=== PATIENT | male | born 1985 ===

== ENCOUNTER 2022-05-11 09:56 | Emergency (ER) | payer MEDICARE ==
[2022-05-11 10:08] VITALS: BP 116/76
--- NOTE | 2022-05-11 11:45 | Emergency Department Report ---
ED Recheck HPI - General Chief Complaint: Medical Clearance Stated Complaint: NEED PSYCH MEDS Time Seen by Provider: 05/11/22 10:44 Source: patient, family, RN notes reviewed Mode of arrival: Ambulatory - History of Present Illness Initial Comments: This is a 36-year-old male [facility]. As per healthcare facility agents stated is in need for his medication refill as patient is new to their facility and has not established a primary care doctor at this time. Otherwise denies any symptoms or complaints. Patient and healthcare facility agent denies any chest pain, shortness of breath, fever, chills, nausea, vomiting, headache or stiff neck. Denies any psychiatric complaints or symptoms at this time. Denies any SI or HI. Returns Today for: request for prescription Symptoms Since Prior Visit: no new symptoms Associated Symptoms: none. denies: fever, chills, chest pain, shortness of breath, rash, malaise, nasuea, abdominal pain - Related Data Previous Rx's Medication Instructions Recorded Last Taken Type Iloperidone [Fanapt] 1 mg PO BID #60 tab 05/11/22 Unknown Rx Levothyroxine Sodium 25 mcg PO DAILY #30 cap 05/11/22 Unknown Rx [Levothyroxine] ED Review of Systems ROS: Stated complaint: NEED PSYCH MEDS Other details as noted in HPI Comment: All other systems reviewed and negative Constitutional: denies: chills, fever Eyes: denies: eye pain, eye discharge, vision change ENT: denies: ear pain, throat pain Respiratory: denies: cough, shortness of breath, wheezing Cardiovascular: denies: chest pain, palpitations Endocrine: no symptoms reported Gastrointestinal: denies: abdominal pain, nausea, diarrhea Genitourinary: denies: urgency, dysuria Musculoskeletal: denies: back pain, joint swelling, arthralgia Skin: denies: rash, lesions Neurological: denies: headache, weakness, paresthesias Psychiatric: denies: anxiety, depression, auditory hallucinations, visual hallucinations, homicidal thoughts, suicidal thoughts Hematological/Lymphatic: denies: easy bleeding, easy bruising ED Past Medical Hx - Past Medical History Additional medical history: hypothyroidism, autism, intermittent explosive disorder, unspecified mood disorder, sleep apnea, intellectual disability. - Medications Home Medications: Home Medications Medication Instructions Recorded Confirmed Last Taken Type Iloperidone [Fanapt] 1 mg PO BID #60 tab 05/11/22 Unknown Rx Levothyroxine Sodium 25 mcg PO DAILY #30 cap 05/11/22 Unknown Rx [Levothyroxine] ED Physical Exam - General Limitations: No Limitations General appearance: alert, in no apparent distress - Head Head exam: Present: atraumatic, normocephalic - Eye Eye exam: Present: normal appearance - Neck Neck exam: Present: normal inspection, full ROM. Absent: lymphadenopathy - Respiratory Respiratory exam: Absent: respiratory distress - Cardiovascular Cardiovascular Exam: Present: regular rate - Extremities Exam Extremities exam: Present: full ROM - Back Exam Back exam: Present: full ROM - Neurological Exam Neurological exam: Present: alert, oriented X3, normal gait - Psychiatric Psychiatric exam: Present: normal affect, normal mood - Skin Skin exam: Present: warm, dry, intact, normal color. Absent: rash ED Course Vital Signs 05/11/22 10:06 Temperature 98.9 F Pulse Rate 99 H Respiratory 14 Rate Blood Pressure 116/76 [Right] O2 Sat by Pulse 96 Oximetry - Reevaluation(s) Reevaluation #1: 05/11/22 11:45 Patient is speaking in full sentences with no signs of distress noted. ED Recheck MDM - Medical Decision Making 36-year-old male that presents with medication refill. Patient is stable and was examined by me. As per healthcare facility agent needs Fanapt 1 mg BID and levothyroxine 25 mcg. At time of discharge, the patient does not seem toxic or ill in appearance. No acute signs of distress noted. Patient agrees to discharge treatment plan of care. No further questions noted by the patient. Critical care attestation.: If time is entered above; I have spent that time in minutes in the direct care of this critically ill patient, excluding procedure time. ED Disposition Clinical Impression: Encounter for medication refill Disposition: HOME / SELF CARE / HOMELESS Is pt being admited?: No Does the pt Need Aspirin: No Condition: Stable Additional Instructions: Follow-up with a primary care doctor in 3-5 days or if symptoms worsen and continue return to emergency room as soon as possible. Prescriptions: Iloperidone [Fanapt] 1 mg PO BID #60 tab Levothyroxine Sodium [Levothyroxine] 25 mcg PO DAILY #30 cap Referrals: PRIMARY CARE, [Referring] - 3-5 Days PRIYA MALIK MD [Staff Physician] - 3-5 Days Time of Disposition: 11:49
== END 2022-05-11 12:00 | disposition home or self-care (01) ==
LOC: ED 09:56
DX: F84.0 Autistic disorder (principal); Z76.0 Encounter for issue of repeat prescription; E03.9 Hypothyroidism, unspecified; F63.81 Intermittent explosive disorder; F39 Unspecified mood [affective] disorder; G47.30 Sleep apnea, unspecified; F79 Unspecified intellectual disabilities
CPT/HCPCS: 99282

== ENCOUNTER 2022-05-22 02:08 | Emergency (ER) | payer MEDICARE ==
[2022-05-22 03:30] VITALS: BP 111/72
[2022-05-22 11:19] LABS: Hemoglobin 12.3 gm/dl (11.8-15.2); Mean Corpuscular HGB Conc 33 % (32-34); Mean Corpuscular Volume 91 fl (84-94); Platelet Count 189 K/mm3 (140-440); Red Blood Count 4.06 M/mm3 (3.65-5.03); Red Cell Distribution Width 14.1 % (13.2-15.2)
--- NOTE | 2022-05-22 11:32 | XRay Report ---
CHEST 2 VIEWS INDICATION: Chest pain. COMPARISON: none FINDINGS: Support devices: None. Heart: Within normal limits. Lungs/pleura: No acute air space or interstitial disease. No pneumothorax. Additional findings: Colonic interposition over the liver is noted. IMPRESSION: No acute findings. Signer Name: Devin Gibson Jr, MD Signed: 05/22/2022 11:28 AM Workstation Name: [id number]
[2022-05-22 11:49] LABS: Alanine Aminotransferase 7 units/L (7-56); Albumin 4.8 g/dL (3.9-5); BUN/Creatinine Ratio 21; Blood Urea Nitrogen 17 mg/dL (9-20); Calcium 10.1 mg/dL (8.4-10.2); Hemolysis Index 4
[2022-05-22 13:27] LABS: Anisocytosis 1+; Basophils % (Manual) 0 % (0.0-1.8); Platelet Estimate Consistent w Auto; Total Cells Counted 100
--- NOTE | 2022-05-22 16:47 | Event Note ---
ED Screening Note ED Screening Note: respiratory care specialist took pt from [facility] due to wait Charge nurse and nursing staff aware Dr Hernandez and Samuel aware of pt - and have not seen at the time of pt leaving Charge nurse aware and will discuss with MD At the time pt left he has been here 14 hours This initial assessment/diagnostic orders/clinical plan/treatment(s) is/are subject to change based on patients health status, clinical progression and re- assessment by fellow clinical providers in the ED. Further treatment and workup at subsequent clinical providers discretion. Patient/guardian urged not to elope from the ED as their condition may be serious if not clinically assessed and managed. Initial orders include:
--- NOTE | 2022-05-22 18:44 | Electrocardiograph Report ---
[facility] Test Date: 2022-05-22 Test Time: 03:09:59 Pat Name: MENG THOMSON Department: Room: Gender: M Medicine Assistant: KIT : 1985 Requested By: ED DOC Order Number: [id number] Reading MD: Mally Franklin Measurements Intervals [place] Rate: 84 P: 78 [place]: 160 QRS: 67 QRSD: 69 T: 49 QT: 381 QTc: 450 Interpretive Statements Sinus rhythm Normal ECG No previous ECG available for comparison Electronically Signed On 05-22-2022 18:43:54 EDT by Mally Franklin
== END 2022-05-22 17:00 | disposition left against medical advice (07) ==
LOC: ED 02:08
DX: G47.00 Insomnia, unspecified (principal); Z53.21 Procedure and treatment not carried out due to patient leaving prior to being seen by health care provider
CPT/HCPCS: 36415; 71046; 80053; 80320; 84484; 85007; 85025; 93005; G0480